=== PATIENT | male | born 1995 | race Caucasian/White ===

== ENCOUNTER 2016-08-04 12:33 | Emergency (ER) | payer OTHER ==
[~2016-08-04] VITALS: Ht 175.3 cm; Wt 72.0 kg
[~2016-08-04 12:33] MED LIST: CEPH500C3 PO; LORTA5 PO; MOBI15TA PO
[2016-08-04 12:42] VITALS: BP 131/87; PULSE 76; RESP 14; TEMP 98.6; O2SAT 100
[2016-08-04] MEDS ORDERED: LIDOCAINE 1%/EPINEPHrine 1:100,000 SOLN 20 ML VIAL INFIL ONE (13:00)
--- NOTE | 2016-08-04 13:03 | PD ---
HPI . Laceration Chief Complaint: Laceration/Skin Injury Time Seen by Provider: 13:00 Travel History International Travel<30 days: No Contact w/Intl Traveler<30days: No Traveled to known affect area: No History of Present Illness HPI Patient presents with a laceration to the left wrist. This occurred just prior to arrival. It was cut on a piece of freshly cut metal. Tetanus is up-to- date. He does not have any limitation to range of motion and he has no distal numbness or weakness. [facility] Social History Alcohol Use: No Tobacco Use: No Substance Use: No Allergies-Medications (Allergen,Severity, Reaction): Coded Allergies: No Known Allergies (Unverified , 08/04/16) Reported Meds & Prescriptions Reported Meds & Active Scripts Active Review of Systems Except as stated in HPI: all other systems reviewed are Neg Skin: Positive Other (laceration) Physical Exam Narrative GENERAL: Awake and alert and in no acute distress. SKIN: Warm and dry. 2 cm laceration on the ulnar aspect of the left wrist. CARDIOVASCULAR: Regular rate and rhythm. RESPIRATORY: No accessory muscle use. MUSCULOSKELETAL: No obvious deformities. No edema. NEUROLOGICAL: Awake and alert. No obvious cranial nerve deficits. Motor grossly within normal limits. Normal speech. PSYCHIATRIC: Appropriate mood and affect; insight and judgment normal. Data Data Last Documented VS Vital Signs Date Time Temp Pulse Resp B/P Pulse Ox O2 Delivery O2 Flow Rate FiO2 08/04/16 12:42 98.6 76 14 131/87 100 Orders Hand, Limited (2vws) (08/04/16 12:58) Ice/Cold Pack (08/04/16 12:58) Lidocai-Epi 1%-1:100,000 Inj (Xylocaine- (08/04/16 13:00) MDM Medical Decision Making Medical Screen Exam Complete: Yes Emergency Medical Condition: Yes Differential Diagnosis Differential diagnosis includes but is not limited to skin laceration, muscular laceration, tendon laceration, neurovascular laceration. Narrative Course Patient presents for treatment of a laceration of the left wrist. X-ray showed a retained foreign body. The x-ray was independently viewed by me. Procedures Procedure Narrative LACERATION LOCATION: Left wrist LENGTH: 2 cm NUMBER OF STITCHES/JESSI: 2 REPAIR: The area of the laceration was prepped with Betadine and sterilely draped. The laceration was infiltrated with 3 cc of 1% lidocaine with epi. The wound was copiously irrigated and explored. There was a metal foreign body which was removed. The wound was closed using 5-0 Prolene. This was a single layer repair. A sterile dressing was applied. The patient was advised to keep the dressing clean and dry. Patient tolerated the procedure well. Diagnosis Primary Impression: Laceration of left wrist Qualified Code: S61.512A - Laceration of left wrist, initial encounter Patient Instructions: General Instructions, Laceration (DC) Additional Instructions: Clean the wound twice daily with soap and water. Apply a thin layer of Neosporin ointment after you wash it. See your doctor in 7 days for suture removal. Seek care sooner for redness, drainage, warmth, unusual pain. Disposition: 01 DISCHARGE HOME Condition: Stable Sammi Nielsen MD Aug 04, 2016 13:03
--- NOTE | 2016-08-04 13:23 | RADHPO ---
EXAM DATE/TIME: 08/04/2016 13:07 [place] COMPARISON: No previous studies available for comparison. INDICATIONS : Left hand laceration from piece of steel. MEDICAL HISTORY : None. SURGICAL HISTORY : ENCOUNTER: Initial ACUITY: 1 day PAIN SCORE: 3/10 LOCATION: Left hand FINDINGS: Two view examination of the left hand demonstrates no dislocation or fracture. There is a metallic r adiopaque foreign body involving the soft tissues along the lateral aspects of the carpus. This measu res less than 1 mm in diameter and is 5 mm in length. There is an adjacent soft tissue defect as well . The joint spaces are maintained. Bony mineralization is normal. CONCLUSION: Metallic foreign body as detailed above. Jack Alvarez Jr., MD on August 04, 2016 at 13:20 Board Certified Radiologist. This report was verified electronically.
[2016-08-04] MEDS ORDERED: NEOMYCIN/POLYMYXIN/BACITRACIN OINT 15 GM TUBE TOPICAL ONE (13:30)
== END 2016-08-04 13:41 | disposition home or self-care (01) ==
LOC: PHED 12:33 → PHEFT 13:41
DX: S61.512A Laceration without foreign body of left wrist, initial encounter (principal); W45.8XXA Other foreign body or object entering through skin, initial encounter
CPT/HCPCS: 12001; 73120

== ENCOUNTER 2017-08-13 20:22 | Emergency (ER) | payer OTHER ==
[2017-08-13 20:31] VITALS: BP 157/86; PULSE 85; RESP 20; TEMP 97.7
--- NOTE | 2017-08-13 21:47 | PD ---
HPI Chief Complaint: GI Complaint Time Seen by Provider: 21:39 Travel History International Travel<30 days: No Contact w/Intl Traveler<30days: No Traveled to known affect area: No History of Present Illness HPI Patient is an otherwise healthy 22-year-old male presents emergency department for evaluation of nausea vomiting and diarrhea. Patient states that his nausea and vomiting started this morning, he has had 4 bouts. He states that he did have some alcohol last night but does not think that is leading into it. Patient became alarmed when he saw some blood in his emesis this morning. He also noticed some mild blood in the stool but not significant. He is not on any blood thinners, has not had any GI problems in the past no previous surgeries, denies any abdominal pain. Symptoms mild, context as above, duration as above, gradually improving per [facility] Social History Alcohol Use: No Tobacco Use: Yes (1 PPW) Substance Use: No Allergies-Medications (Allergen,Severity, Reaction): Coded Allergies: No Known Allergies (Unverified , 08/04/16) Reported Meds & Prescriptions Reported Meds & Active Scripts Active Zofran (Ondansetron HCl) 4 Mg Tab 4 Mg PO Q6HR PRN Review of Systems Except as stated in HPI: all other systems reviewed are Neg Physical Exam Narrative GENERAL: Well-developed well-nourished no obvious distress, bearded. SKIN: Focused skin assessment warm/dry. HEAD: Atraumatic. Normocephalic. EYES: Pupils equal and round. No scleral icterus. No injection or drainage. ENT: No nasal bleeding or discharge. Mucous membranes pink and moist. NECK: Trachea midline. No JVD. CARDIOVASCULAR: Regular rate and rhythm. No murmur appreciated. RESPIRATORY: No accessory muscle use. Clear to auscultation. Breath sounds equal bilaterally. GASTROINTESTINAL: Abdomen soft, non-tender, nondistended. Hepatic and splenic margins not palpable. MUSCULOSKELETAL: No obvious deformities. No clubbing. No cyanosis. No edema. NEUROLOGICAL: Awake and alert. No obvious cranial nerve deficits. Motor grossly within normal limits. Normal speech. PSYCHIATRIC: Appropriate mood and affect; insight and judgment normal. Data Data Last Documented VS Vital Signs Date Time Temp Pulse Resp B/P (MAP) Pulse Ox O2 Delivery O2 Flow Rate FiO2 08/13/17 23:15 77 16 130/69 (89) 99 08/13/17 22:00 Room Air 08/13/17 20:31 97.7 Orders Orders Complete Blood Count With Diff (08/13/17 21:46) Comprehensive Metabolic Panel (08/13/17 21:46) Lipase (08/13/17 21:46) Prothrombin Time / Inr (Pt) (08/13/17 21:46) Act Partial Throm Time (Ptt) (08/13/17 21:46) Iv Access Insert/Monitor (08/13/17 21:46) Ecg Monitoring (08/13/17 21:46) Oximetry (08/13/17 21:46) Ondansetron Inj (Zofran Inj) (08/13/17 22:00) Sodium Chloride 0.9% Flush (Ns Flush) (08/13/17 22:00) Ed Discharge Order (08/13/17 22:53) Labs Laboratory Tests Test 08/13/17 22:00 White Blood Count 9.9 TH/MM3 Red Blood Count 5.26 MIL/MM3 Hemoglobin 15.2 GM/DL Hematocrit 46.1 % Mean Corpuscular Volume 87.6 FL Mean Corpuscular Hemoglobin 29.0 PG Mean Corpuscular Hemoglobin Concent 33.1 % Red Cell Distribution Width 11.7 % Platelet Count 306 TH/MM3 Mean Platelet Volume 7.8 FL Neutrophils (%) (Auto) 67.6 % Lymphocytes (%) (Auto) 23.6 % Monocytes (%) (Auto) 6.2 % Eosinophils (%) (Auto) 1.8 % Basophils (%) (Auto) 0.8 % Neutrophils # (Auto) 6.7 TH/MM3 Lymphocytes # (Auto) 2.3 TH/MM3 Monocytes # (Auto) 0.6 TH/MM3 Eosinophils # (Auto) 0.2 TH/MM3 Basophils # (Auto) 0.1 TH/MM3 CBC Comment DIFF FINAL Differential Comment Prothrombin Time 11.4 SEC Prothromb Time International Ratio 1.1 RATIO Activated Partial Thromboplast Time 24.5 SEC Blood Urea Nitrogen 13 MG/DL Creatinine 0.85 MG/DL Random Glucose 94 MG/DL Total Protein 7.7 GM/DL Albumin 4.5 GM/DL Calcium Level 9.3 MG/DL Alkaline Phosphatase 94 U/L Aspartate Amino Transf (AST/SGOT) 18 U/L Alanine Aminotransferase (ALT/SGPT) 23 U/L Total Bilirubin 0.9 MG/DL Sodium Level 140 MEQ/L Potassium Level 3.4 MEQ/L Chloride Level 104 MEQ/L Carbon Dioxide Level 29.7 MEQ/L Anion Gap 6 MEQ/L Estimat Glomerular Filtration Rate 114 ML/MIN Lipase 83 U/L MDM Medical Decision Making Medical Screen Exam Complete: Yes Emergency Medical Condition: Yes Differential Diagnosis Gastritis, gastroenteritis, pancreatitis, Cyn Tolentino tear, clinically significant GI bleeding is unlikely. Narrative Course Patient room to the emergency department, he appears well in obvious distress, he has not had any emesis while in the emergency department, given Zofran and fluids, his basic labs are reassuring. His abdomen is benign. There is no indication further workup of this patient at this time. Discussed symptomatic management return to ED criteria. He is stable for discharge per Diagnosis Primary Impression: N&V (nausea and vomiting) Additional Impressions: Diarrhea Hematochezia Hematemesis Med/Other Pt SpecificInfo: Prescription(s) given Scripts Ondansetron (Zofran) 4 Mg Tab 4 MG PO Q6HR Y for NAUSEA OR VOMITING, #20 TAB 0 Refills Prov: Qamar Wilson MD 08/13/17 Disposition: DISCHARGE HOME Condition: Stable Qamar Wilson MD Aug 13, 2017 21:47
[2017-08-13 22:00] VITALS: BP 126/66; PULSE 55; RESP 18; O2SAT 97
[2017-08-13] MEDS ORDERED: ONDANSETRON HCL 4 MG/2 ML VIAL IVP ONE (22:00)
[2017-08-13] MEDS ORDERED: SODIUM CHLORIDE 0.9% FLUSH 10 ML FLUSH IV FLUSH PRN (22:00)
[2017-08-13 22:12] LABS: AUTOMATED NEUTROPHIL # 6.7 TH/MM3 (1.8-7.7); BASOPHIL # 0.1 TH/MM3 (0-0.2); BASOPHIL % 0.8 % (0.0-2.0); EOSINOPHIL # 0.2 TH/MM3 (0-0.4); EOSINOPHIL % 1.8 % (0.0-4.0); HEMATOCRIT 46.1 % (39.0-51.0); HEMOGLOBIN 15.2 GM/DL (13.0-17.0); LYMPH % 23.6 % (9.0-44.0); LYMPHOCYTE # 2.3 TH/MM3 (1.0-4.8); MEAN CELL VOLUME 87.6 FL (80.0-100.0); MEAN CORPUSCULAR HGB CONC 33.1 % (32.0-36.0); MEAN PLATELET VOLUME 7.8 FL (7.0-11.0); MONO % 6.2 % (0.0-8.0); MONOCYTE # 0.6 TH/MM3 (0-0.9); NEUT % 67.6 % (16.0-70.0); PLATELET COUNT 306 TH/MM3 (150-450); RED BLOOD COUNT 5.26 MIL/MM3 (4.50-5.90); RED CELL DISTRIBUTION WIDTH 11.7 % (11.6-17.2); WHITE BLOOD COUNT 9.9 TH/MM3 (4.0-11.0)
[2017-08-13 22:21] LABS: CHLORIDE 104 MEQ/L (98-107); SODIUM (NA) 140 MEQ/L (136-145)
[2017-08-13 22:24] LABS: ALBUMIN 4.5 GM/DL (3.4-5.0); BICARBONATE 29.7 MEQ/L (21.0-32.0); CALCIUM 9.3 MG/DL (8.5-10.1)
[2017-08-13 22:25] LABS: BLOOD UREA NITROGEN 13 MG/DL (7-18); GLUCOSE,RANDOM 94 MG/DL (74-106)
[2017-08-13 22:27] LABS: ALT (GPT) 23 U/L (12-78); AST (GOT) 18 U/L (15-37)
[2017-08-13 22:28] LABS: CREATININE 0.85 MG/DL (0.60-1.30); GLOMERULAR FILTRATION RATE 114 ML/MIN (>89)
[2017-08-13 22:29] LABS: TOTAL BILIRUBIN ADULT 0.9 MG/DL (0.2-1.0); TOTAL PROTEIN 7.7 GM/DL (6.4-8.2)
[2017-08-13 22:30] LABS: ALKALINE PHOSPHATASE 94 U/L (45-117)
[2017-08-13] MEDS ORDERED: ZOFR4TAB PO (22:34)
[2017-08-13 22:37] VITALS: BP 128/67; O2SAT 97
[2017-08-13 22:44] LABS: INTERNATIONAL NORMALIZED RATIO 1.1 RATIO; PROTHROMBIN TIME - PATIENT 11.4 SEC (9.8-11.6)
[2017-08-13 23:15] VITALS: BP 130/69
== END 2017-08-13 23:20 | disposition home or self-care (01) ==
LOC: PHED 20:22
DX: R11.2 Nausea with vomiting, unspecified (principal); R19.7 Diarrhea, unspecified; K92.1 Melena; K92.0 Hematemesis; F17.200 Nicotine dependence, unspecified, uncomplicated
CPT/HCPCS: 80053; 83690; 85025; 85610; 85730; 96374; 99284; J2405